=== PATIENT | female | born 1955 | race Caucasian/White ===

== ENCOUNTER 2017-01-11 19:26 | Emergency (ER) | payer OTHER ==
[2017-01-11 19:37] VITALS: BP 136/76; PULSE 98; TEMP 97; BMI 24.2
[2017-01-11] MEDS ORDERED: DIPHTH,PERTUSS(ACELL),TET 0.5 ML DISP.SYRIN IM ONE (19:52)
--- NOTE | 2017-01-11 19:56 | PDOC ---
History of Present Illness - General Chief Complaint: Injury Stated Complaint: INJURY Time Seen by Provider: 01/11/17 19:41 - History of Present Illness Initial Comments: 01/11/17 19:52 CHIEF COMPLAINT: pain to finger HISTORY OF PRESENT ILLNESS: 61 yo F presents to ED s/p trauma to 3rd and 4th fingers on left hand. Patient reports that she got her "fingers caught in a garage door." Patient reports pain but states she is "able to handle it." Patient states she is unable to move her third finger and that it "has a cut" No recent travel or sick contacts. PAST MEDICAL HISTORY: Denies past medical history FAMILY HISTORY: Denies SOCIAL HISTORY: Denies tobacco, alcohol, illicit drug use. SURGICAL HISTORY: Denies ALLERGIES: No known drug allergies REVIEW OF SYSTEMS General/Constitutional: Denies fever or chills. Denies weakness, weight change. HEENT: Denies change in vision. Denies ear pain or discharge. Denies sore throat. Cardiovascular: Denies chest pain or shortness of breath. Respiratory: Denies cough, wheezing, or hemoptysis. Gastrointestinal: Denies nausea, vomiting, diarrhea or constipation. Denies rectal bleeding. Genitourinary: Denies dysuria, frequency, or change in urination. Musculoskeletal: Pain to R 3rd and 4th finger. Denies joint or muscle swelling or pain. Denies neck or back pain. Skin and breasts: Cut to R 3rd finger. Denies rash or easy bruising. PHYSICAL EXAM General Appearance: Well-appearing, appropriately dressed. No apparent distress , no intoxication. HEENT: EOMI, PERRLA, normal ENT inspection, normal voice, TMs normal, pharynx normal. No conjunctival pallor. No photophobia, scleral icterus. Neck: Supple. Trachea midline. No tenderness, rigidity, carotid bruit, stridor , lymphadenopathy, or thyromegaly. Respiratory/Chest: Lungs CTAB. No shortness of breath, chest tenderness, respiratory distress, accessory muscle use. No crackles, rales, rhonchi, stridor , wheezing, dullness Cardiovascular: RRR. S1, S2. No JVD, murmur, bradycardia, tachycardia. Vascular Pulses: Dorsalis-Pedis (R): 2+, Dorsalis-Pedis (L): 2+ Gastrointestinal/Abdominal: Normal bowel sounds. Abdomen soft, non-distended. No tenderness or rebound tenderness. No organomegaly, pulsatile mass, guarding , hernia, hepatomegaly, splenomegaly. Lymphatic: No adenopathy, tenderness. Musculoskeletal/Extremities: Limited ROM to R 3rd finger, superficial lac to dorsal and volar aspect of finger at DIP. Normal inspection. FROM of all extremities, normal capillary refill. Pelvis Stable. No CVA tenderness. No tenderness to extremities, pedal edema, swelling, erythema or deformity. Integumentary: Appropriate color, dry, warm. No cyanosis, erythema, jaundice or rash Neurologic: editorial specialist II-XII intact. Fully oriented, alert. Appropriate mood/affect. Motor strength 5/5. No appreciable EOM palsy, facial droop or sensory deficit. Past History - Past Medical History Allergies/Adverse Reactions: Allergies Allergy/AdvReac Type Severity Reaction Status Date / Time No Known Allergies Allergy Verified 01/11/17 19:34 Home Medications: Ambulatory Orders No Home Medications 0 dose .ROUTE UTDICT 02/24/13 Ibuprofen 600 mg PO TID #21 tablet 01/11/17 Other medical history: denies - Immunization History Immunization Up to Date: No - Psycho/Social/Smoking Cessation Hx Anxiety: No Suicidal Ideation: No Smoking Status: No Smoking History: Never smoked Number of Cigarettes Smoked Daily: 0 *Physical Exam - Vital Signs Last Vital Signs Temp Pulse Resp BP Pulse Ox 97 F L 98 H 18 136/76 98 01/11/17 19:30 01/11/17 19:30 01/11/17 19:30 01/11/17 19:30 01/11/17 19:30 Procedures - Consent Consent obtained: Verbal - Laceration/Wound Repair Right Volar Finger 3rd digit Wound Length: to 2.5 cm Wound Explored: clean Wound's Depth, Shape: superficial Irrigated w/ Saline: Yes Betadine Prep: Yes Anesthesia: 1% Lidocaine Amount of Anesthetic (ccs): 2 Wound Repaired With: Sutures Suture Size/Type: 5:0 Number of Sutures: 2 Sterile Dressing Applied: Yes (xeroform, dry gauze) Splint Applied: Yes Type of Splint Applied: finger splint ED Treatment Course - RADIOLOGY Radiology Studies Ordered: Category Date Time Status FINGER(S) LEFT [RAD] Stat Radiology 01/11/17 19:50 Ordered Medical Decision Making - Medical Decision Making 06/25/17 19:56 61 yo F presents to ED s/p trauma to 3rd and 4th fingers on left hand. Patient states she does not need pain medicine at this time. She does not remember last Tdap. -Finger x-ray -Tdap lac repair (see procedure note) Advised patient of post lac repair instructions and to return in 10-14 days for suture removal. Advised patient of signs and symptoms for return to eR; patient verbalized understanding and agrees to plan. *DC/Admit/Observation/Transfer Diagnosis at time of Disposition: Finger laceration - Discharge Dispostion Disposition: HOME Condition at time of disposition: Good Admit: No - Prescriptions Prescriptions: Ibuprofen 600 mg PO TID #21 tablet - Referrals Referrals: Juan R Carey MD [Staff Physician] - - Patient Instructions Printed Discharge Instructions: DI for Laceration Repair Additional Instructions: Keep finger clean and dry for the next 24 hours. Please follow up with Dr. Carey as discussed. Follow up in 10-14 days for suture removal. If you experience any loss of sensation to your finger, fever, nausea, vomiting, diarrhea, or redness, streaking, swelling, or warmth to your finger, please return to the ER.
[2017-01-11] MEDS ORDERED: IBUPROFEN 600 MG TABLET (FP) PO ONE ×2 (20:20→20:23)
== END 2017-01-11 21:16 | disposition home or self-care (01) ==
LOC: JERFT 19:26 → JER 19:26 → JERFT 21:16
PROC: 3E0234Z Introduction of Serum, Toxoid and Vaccine into Muscle, Percutaneous Approach (ICD-10-PCS; principal; 2017-01-11)
PROC: 0HQFXZZ Repair Right Hand Skin, External Approach (ICD-10-PCS; 2017-01-11)
DX: S61.212A Laceration without foreign body of right middle finger without damage to nail, initial encounter (principal); W23.0XXA Caught, crushed, jammed, or pinched between moving objects, initial encounter; Y93.89 Activity, other specified; Y92.89 Other specified places as the place of occurrence of the external cause
CPT/HCPCS: 73140-TC-LT; 90715; 99281-25

== ENCOUNTER 2017-09-08 23:38 | Emergency (ER) | payer OTHER ==
[2017-09-08 23:52] VITALS: BP 167/98; PULSE 73; TEMP 97.8; BMI 23.7
--- NOTE | 2017-09-09 16:28 | EKG ---
Test Reason : Blood Pressure : / mmHG Vent. Rate : 083 BPM Atrial Rate : 083 BPM P-R Int : 144 ms QRS Dur : 094 ms QT Int : 364 ms P-R-T Axes : 038 001 026 degrees QTc Int : 427 ms NORMAL SINUS RHYTHM NORMAL ECG WHEN COMPARED WITH ECG OF 07-MAR-2011 13:00, FUSION COMPLEXES ARE NO LONGER PRESENT Confirmed by VITA MACIAS MD ([id number]) on 09/09/2017 4:28:17 PM Referred By: Confirmed By:VITA MACIAS MD
== END 2017-09-09 01:56 | disposition left against medical advice (07) ==
LOC: JER 23:38
DX: Z53.21 Procedure and treatment not carried out due to patient leaving prior to being seen by health care provider (principal)
CPT/HCPCS: 93005; 93010; 99281-25

== ENCOUNTER 2018-04-26 05:09 | Day surgery (SDC) | payer OTHER ==
[2018-04-22 14:42] VITALS: BMI 24.4
--- NOTE | 2018-04-26 15:02 | HP ---
History & Physical Update - Physical Physical: No Change - Assessment Assessment: No Change - Plan Plan: No Change
[2018-04-26] MEDS ORDERED: PROPOFOL 20 ML ONE ×3 (15:12)
[2018-04-26] MEDS ORDERED: SUCCINYLCHOLINE CHLORIDE 200 MG/10 ML VIAL ONE (15:17)
[2018-04-26] MEDS ORDERED: KETOROLAC TROMETHAMINE 30 MG/1 ML VIAL ONE (15:40)
[2018-04-26] MEDS ORDERED: DEXAMETHASONE SOD PHOSPHATE 4 MG/1 ML VIAL ONE (15:40)
[2018-04-26] MEDS ORDERED: IBUPROFEN 600 MG TABLET (FP) PO PRN (16:11)
[2018-04-26] MEDS ORDERED: IBUPROFEN 800 MG/8 ML IJ IVPB PRN (16:11)
[2018-04-26] MEDS ORDERED: ONDANSETRON 4 MG/2 ML VIAL IVPUSH PRN ×2 (16:11→16:20)
[2018-04-26] MEDS ORDERED: oxyCODONE HCL 5 MG TABLET PO PRN ×2 (16:11→16:20)
[2018-04-26] MEDS ORDERED: ELECTROLYTE-148 SOLN 1,000 ML IV SCH (16:15)
[2018-04-26] MEDS ORDERED: ACETAMINOPHEN 1000 MG/100 ML VIAL (NON FORMULARY) IVPB ONE (16:30)
[2018-04-26] MEDS ORDERED: LACTATED RINGERS SOLUTION 1,000 ML IV SCH (16:30)
[2018-04-26] MEDS ORDERED: ACETAMINOPHEN INJECTION 100 ML IVPB ONE (16:38)
[2018-04-26 17:05] VITALS: TEMP 98.2
[2018-04-26 17:37] VITALS: BP 132/76; PULSE 72
--- NOTE | 2018-04-27 09:46 | OP ---
DATE OF OPERATION: 04/26/2018 PREOPERATIVE DIAGNOSIS: Atypical glandular cell of undetermined significance, abnormal endometrium, endometrial polyp, and submucous fibroid. PROCEDURE: Hysteroscopy, dilatation and curettage, resection of endometrial polyp and submucous myoma. SURGEON: Rajeev Mercedes MD ANESTHESIA: General. ESTIMATED BLOOD LOSS: 50 mL. DESCRIPTION OF PROCEDURE: The patient was taken to the operating room, had adequate general anesthesia, in dorsal lithotomy position. Examination under anesthesia revealed external genitalia to be normal. Vagina was normal. Cervix was clean. No gross lesion. Uterus was slightly prominent. Adnexa, no masses were palpable. Then, with a weighted speculum in the vagina, anterior lip of the cervix was grasped with a single-tooth tenaculum. Endocervical curetting was done first. Then, uterine cavity was sounded to 9 cm. Cervix was slightly dilated with Hegar dilator. Then, hysteroscope was introduced. Visualization of the endocervical canal appeared to be normal. There was an endometrial polyp at the lower uterine segment extending to the endocervical area. There was also a small submucous myoma at the fundal area of the uterus. Endometrium appeared to be prominent and irregular. At this time, Symphion Resectoscope was introduced, and first the endometrial polyp in the lower uterine segment was resected in its entirety, and then, submucous myoma also was resected with the Symphion Resectoscope in its entirety. There was slight amount of bleeding at the site, which was , and bleeding was stopped. Then, endometrium was curetted in litigation partner fashion. Patient tolerated the procedure well, left the OR in good condition. The fluid deficit was 0. Taj [id number]
--- NOTE | 2018-04-30 14:26 | PATH ---
Surgical Pathology Report Patient Name: MILO MIDDLETON [facility]. Rec. #: [id number] /Age/Gender: 1955 (Age: 62) / F Account: [id number] Location: [facility] SURGICAL Taken: 04/26/2018 Received: 04/27/2018 Reported: 04/29/2018 Physicians: Rajeev Mercedes M.D. Specimen(s) Received A: ENDOCERVICAL CURETTINGS B: ENDOMETRIAL CURETTINGS C: ENDOMETRIUM POLYP AND CURETTINGS Clinical History Atypical granular cell on cervical Pap smear Final Diagnosis A. ENDOCERVICAL CURETTINGS: FRAGMENTS OF ENDOCERVICAL TISSUE WITH SQUAMOUS METAPLASIA. SCANTY SUPERFICIAL ENDOMETRIAL TISSUE SHOWING FOCAL STROMAL BREAKDOWN AND EOSINOPHILIC PAPILLARY CHANGE. B. ENDOMETRIAL CURETTINGS: COMPLEX ENDOMETRIAL HYPERPLASIA WITH ATYPIA. C. ENDOMETRIAL POLYP AND CURETTINGS: COMPLEX ENDOMETRIAL HYPERPLASIA WITH ATYPIA. SEPARATE ENDOMETRIAL POLYPS. COMMENT: CARCINOMAS CANNOT BE EXCLUDED. This case was discussed with Dr. Mercedes on April 29, 2018. Electronically Signed Josafat Palencia M.D. Gross Description A. Received in formalin labeled "endocervical curetting," is a 2.0 x 1.9 x 0.3 cm aggregate of red-brown soft tissue fragments admixed with blood-tinged mucous. The formalin is filtered and the specimen is entirely submitted in one cassette. B. Received in formalin labeled "endometrial curetting," is a 2.5 x 2.5 x 0.3 cm aggregate of red-brown soft tissue fragments. The formalin is filtered and the specimen is entirely submitted in one cassette. C. Received in formalin labeled "polyp and endometrial curettings," is a 2.4 x 2.0 x 0.3 cm aggregate of king soft tissue fragments. The formalin is filtered and the specimen is entirely submitted in one cassette. DL04/27/2018 saudi04/27/2018
== END 2018-04-26 17:39 | disposition home or self-care (01) ==
LOC: JASU-SURG 05:09
PROVIDERS: ATTEND Obstetrics & Gynecology
PROC: 0UDB7ZX Extraction of Endometrium, Via Natural or Artificial Opening, Diagnostic (ICD-10-PCS; 2018-04-26)
PROC: 0UJD8ZZ Inspection of Uterus and Cervix, Via Natural or Artificial Opening Endoscopic (ICD-10-PCS; 2018-04-26)
PROC: 0UB98ZZ Excision of Uterus, Via Natural or Artificial Opening Endoscopic (ICD-10-PCS; principal; 2018-04-26 15:00)
PROC: 0UB97ZX Excision of Uterus, Via Natural or Artificial Opening, Diagnostic (ICD-10-PCS; 2018-04-26 15:00)
DX: D25.0 Submucous leiomyoma of uterus (principal); N84.0 Polyp of corpus uteri
CPT/HCPCS: 88305-TC; 94760; J0131

== ENCOUNTER 2018-07-06 08:33 | Inpatient (IN) | payer OTHER ==
[2018-07-05 13:42] VITALS: BMI 23.7
[2018-07-06] MEDS ORDERED: ROPIVACAINE HCL 0.5% 30ML VIAL ONE (12:26)
[2018-07-06] MEDS ORDERED: DEXAMETHASONE SOD PHOSPHATE/PF 10 MG/ML SDV ONE (12:26)
[2018-07-06] MEDS ORDERED: MIDAZOLAM HCL 2 MG/2 ML SINGLE DOSE VIAL ONE ×4 (12:31→13:40)
[2018-07-06] MEDS ORDERED: DESFLURANE GAS 240 ML BOTTLE IH ONE (13:38)
--- NOTE | 2018-07-06 13:43 | HP ---
Past Medical History - Primary Care Physician PCP:: Rajeev Mercedes - Admission Chief Complaint: Endometrial hyperplasia with atypia History of Present Illness: 62 yo f with hx of galndular atypia on pap sono thicken EM , s/p hysteroscopy D& C , pta report endometrial hyperplasia with atypia , admitted for CHANTEL, BSO, risks and benfit to surgery has discussed with patient History Source: Patient Limitations to Obtaining History: No Limitations - Past Surgical History Hx Myomectomy: No Hx Transabdominal Cerclage: No - Smoking History Smoking history: Never smoked Have you smoked in the past 12 months: No Aproximately how many cigarettes per day: 0 - Alcohol/Substance Use Hx Alcohol Use: No - Social History Usual Living Arrangement: Yes: With Spouse History of Recent Travel: No Home Medications - Allergies Allergies/Adverse Reactions: Allergies Allergy/AdvReac Type Severity Reaction Status Date / Time No Known Allergies Allergy Verified 04/26/18 13:36 - Home Medications Home Medications: Ambulatory Orders NK [No Known Home Medication] 07/05/18 Review of Systems - Review of Systems Constitutional: reports: No Symptoms Eyes: reports: No Symptoms HENT: reports: No Symptoms Neck: reports: No Symptoms Cardiovascular: reports: No Symptoms Respiratory: reports: No Symptoms Gastrointestinal: reports: No Symptoms Genitourinary: reports: No Symptoms Breasts: reports: No Symptoms Reported Musculoskeletal: reports: No Symptoms Integumentary: reports: No Symptoms Neurological: reports: No Symptoms Endocrine: reports: No Symptoms Hematology/Lymphatic: reports: No Symptoms Psychiatric: reports: No Symptoms Physical Exam-ENTRY LEVEL ELECTRICAL ENGINEER Vital Signs: Vital Signs Temperature 97.9 F 07/06/18 09:29 Pulse Rate 80 07/06/18 09:29 Respiratory Rate 16 07/06/18 09:29 Blood Pressure 145/90 07/06/18 09:29 O2 Sat by Pulse Oximetry (%) 98 07/06/18 09:28 Constitutional: Yes: Well Nourished, No Distress, Calm Eyes: Yes: WNL, Conjunctiva Clear, EOM Intact HENT: Yes: WNL, Atraumatic, Normocephalic Neck: Yes: WNL, Supple, Trachea Midline Cardiovascular: Yes: WNL, Regular Rate and Rhythm Respiratory: Yes: WNL, Regular, CTA Bilaterally Gastrointestinal: Yes: WNL ...Rectal Exam: Yes: WNL Renal/: Yes: WNL External Genitalia: Yes: Normal Vaginal Exam: Yes: Normal Cervix: Yes: Normal Uterus: Yes: Normal Adnexa: Not Palpable: Left, Right Breast(s): Yes: WNL Musculoskeletal: Yes: WNL Extremities: Yes: WNL Edema: No Integumentary: Yes: WNL Neurological: Yes: WNL, Alert, Oriented ...Motor Strength: WNL Psychiatric: Yes: WNL, Alert, Oriented Problem List - Problem (1) Endometrial hyperplasia with atypia Code(s): N85.02 - ENDOMETRIAL INTRAEPITHELIAL NEOPLASIA [EIN] Assessment/Plan chantel, bso, possible pelvic lymph node sampling, omentectomy
[2018-07-06] MEDS ORDERED: PROPOFOL 20 ML ONE (14:24)
[2018-07-06] MEDS ORDERED: ROCURONIUM BROMIDE 50 MG/5 ML VIAL ONE ×2 (14:24→15:50)
[2018-07-06] MEDS ORDERED: ceFAZolin SODIUM 1 GM VIAL IVPB ONE ×2 (14:29)
[2018-07-06] MEDS ORDERED: ACETAMINOPHEN INJECTION 100 ML IVPB ONE (14:56)
[2018-07-06] MEDS ORDERED: NEOSTIGMINE METHYLSULFATE 0.5 MG/ML - 10 ML MDV ONE (16:04)
[2018-07-06] MEDS ORDERED: IBUPROFEN 600 MG TABLET (FP) PO PRN (16:34)
[2018-07-06] MEDS ORDERED: ONDANSETRON 4 MG/2 ML VIAL IVPUSH PRN ×3 (16:34→17:04)
[2018-07-06] MEDS ORDERED: IBUPROFEN 800 MG/8 ML IJ IVPB PRN (16:34)
[2018-07-06] MEDS ORDERED: oxyCODONE HCL 5 MG TABLET PO PRN (16:34)
[2018-07-06] MEDS ORDERED: GLYCOPYRROLATE 0.2 MG/1 ML VIAL ONE ×2 (16:40→16:42)
[2018-07-06] MEDS ORDERED: DEXAMETHASONE SOD PHOSPHATE 4 MG/1 ML VIAL ONE (16:42)
[2018-07-06] MEDS ORDERED: ELECTROLYTE-148 SOLN 1,000 ML IV SCH (16:45)
[2018-07-06] MEDS ORDERED: HYDROmorphone *PCA* 10MG/50ML DISP.SYRIN PCA ONE ×2 (17:02→17:05)
[2018-07-06] MEDS ORDERED: IBUPROFEN 800 MG/8 ML IJ IVPB ONE ×2 (17:17→17:30)
[2018-07-06] MEDS ORDERED: HYDROmorphone *PCA* 10MG/50ML DISP.SYRIN PCA SCH (17:45)
[2018-07-06] MEDS ORDERED: CEFAZOLIN 1 GM/D5W 1 GM/50 ML BAG IVPB SCH (18:00)
[2018-07-06] MEDS: CEFAZOLIN 1 GM/D5W 1 GM/50 ML BAG IVPB SCH (21:40)
[2018-07-06] MEDS: LACTATED RINGERS SOLUTION 1,000 ML IV SCH (21:40)
[2018-07-07] MEDS: CEFAZOLIN 1 GM/D5W 1 GM/50 ML BAG IVPB SCH ×2 (05:38→15:04)
[2018-07-07 06:52] LABS: HEMATOCRIT 40.6 % (32.4-45.2); HEMOGLOBIN 13.4 GM/dL (10.7-15.3); MCH 28.9 pg (25.7-33.7); MCHC 32.9 g/dl (32.0-36.0); MEAN CELL VOLUME 87.7 fl (80-96); MEAN PLT VOLUME 8.4 fl (7.5-11.1); PLATELET COUNT 258 K/MM3 (134-434); RBC 4.63 M/mm3 (3.60-5.2); RDW 12.8 % (11.6-15.6)
[2018-07-07] MEDS: LACTATED RINGERS SOLUTION 1,000 ML IV SCH (07:14)
--- NOTE | 2018-07-07 07:25 | OP ---
DATE OF OPERATION: 07/06/2018 PREOPERATIVE DIAGNOSIS: Atypical endometrial hyperplasia with atypia, rule out endometrial cancer. POSTOPERATIVE DIAGNOSIS: Atypical endometrial hyperplasia with atypia, rule out endometrial cancer. PROCEDURE: Total abdominal hysterectomy, bilateral salpingo-oophorecetomy, and pelvic washing. SURGEON: Rajeev Mercedes MD MANAGER FITNESS: Evan Mckeon MD ANESTHESIA: General. ANESTHESIOLOGIST: Elizabeth Farley MD ESTIMATED BLOOD LOSS: 250 mL. DESCRIPTION OF PROCEDURE: The patient was taken to the operating room, and under adequate general anesthesia in dorsal supine position , abdomen and perineum were prepped and draped. A Pfannenstiel abdominal skin incision was made. Abdominal wall was cut layer by layer, until peritoneum was exposed and incised. Upon entering the abdominal cavity, upper abdomen was checked, was normal. Bowels were packed away. Pelvic washing was done. Uterus appeared to be normal. Both ovaries and tubes were normal. Bladder was adherent to the anterior lower uterine segment. Cul-se-sac was free of adhesions. Then, both cornua region of the uterus were grasped with 2 curved Genaro, and both round ligaments were identified bilaterally, clamped with the bipolar LigaSure cautery, cauterized and cut. Then, the anterior leaf of broad ligament was opened. Bladder was dissected from the lower uterine segment, and bladder was pushed down. Then, a hole was made into the broad ligament, and infundibulopelvic ligament was grasped with a Sukhwinder clamp and cut, and the clamp replaced with bilateral 2-0 Vicryl tags. This done, bladder was further pushed down. Uterine arteries were identified bilaterally, clamped with Sukhwinder clamp and cut, and the clamp replaced with 0 Vicryl suture bilaterally. Bladder was further pushed down. Then, paracervical area was grasped with a Sukhwinder clamp and cut, and the clamp replaced with 0 Vicryl suture bilaterally until cervicovaginal junction was reached. At this time, vaginal anchor was grasped with Sukhwinder clamps, cut, and the clamp with 0 Vicryl suture bilaterally. The suture was held with a hemostat. Then, specimen was removed below the cervix. Then, vaginal cuff was closed with interrupted suture of 3-0 Vicryl. There was a small amount of oozing from the uterosacral ligament on the right side, which was grasped with a right-angle clamp and tied. Hemostasis was established. Pelvic cavity several times irrigated. No active bleeding was seen. Both ureters were manually checked, appeared to be normal. Urine was clear. All the lap pad, sponge, and instrument counts were correct. Then, peritoneum was closed with 0 Vicryl continuous suture. Muscles were brought together with interrupted suture of 0 Vicryl. Fascia was closed with 0 Vicryl continuous sutures, subcutaneous fat with interrupted suture of 0 Vicryl, and the skin was closed with 4-0 Biosyn subcuticular continuous suture. Patient tolerated the procedure well, left the OR in good condition. Frozen section of the specimen showed at the time of the procedure focal endometrial hyperplasia with atypia. No evidence of invasion. Patient tolerated the procedure well, left the OR in good condition. Taj [id number]
[2018-07-07 07:34] LABS: ANION GAP 10 MMOL/L (8-16); BLOOD UREA NITROGEN 11 mg/dL (7-18); CALCIUM 7.7 mg/dL (8.5-10.1); CHLORIDE 100 mmol/L (98-107); CO2 24 mmol/L (21-32); CREATININE 0.5 mg/dL (0.55-1.3); GLUCOSE,RANDOM 130 mg/dL (74-106); SODIUM 134 mmol/L (136-145)
--- NOTE | 2018-07-07 08:21 | PN ---
Progress Note (short form) - Note Progress Note: Anesthesia Pain Pt seen and exmained S:Alert and awake comfortable O: Vital Signs Temperature 98.9 F 07/07/18 06:00 Pulse Rate 97 H 07/07/18 06:00 Respiratory Rate 07/07/18 06:00 Blood Pressure 140/72 07/07/18 06:00 O2 Sat by Pulse Oximetry (%) 93 L 07/06/18 18:48 CBC, BMP 07/07/18 06:30 07/07/18 06:30 A/P: Current Active Problems Endometrial hyperplasia with atypia (Acute) s/p CHANTEL Uses FINANCIAL SALES ASSISTANT Continue current care Johnny Bernstein MD
[2018-07-07] MEDS: ENOXAPARIN NA (PORCINE) 40 MG/0.4 ML DISP.SYRIN SQ SCH (09:01)
[2018-07-07] MEDS ORDERED: oxyCODONE HCL 5 MG TABLET PO PRN (10:05)
[2018-07-07] MEDS ORDERED: SIMETHICONE 80 MG TAB.CHEW (FP) PO PRN (10:06)
[2018-07-07] MEDS ORDERED: ACETAMINOPHEN 325 MG TABLET (FP) PO PRN (10:06)
[2018-07-07] MEDS ORDERED: SENNOSIDES/DOCUSATE COMBO (SENNA PLUS) TABLET (UD) PO PRN (10:07)
--- NOTE | 2018-07-07 10:13 | PN ---
Progress Note (short form) - Note Progress Note: POD 1 S/P monserrat, bso , HAS MILD INCISIONAL PAIN, NO VAGINAL BLEEDING, URINE CLEAR CBC, BMP 07/07/18 06:30 07/07/18 06:30 Last Vital Signs Temp Pulse Resp BP Pulse Ox 98.9 F 97 H 18 140/72 93 L 07/07/18 06:00 07/07/18 06:00 07/07/18 06:00 07/07/18 06:00 07/06/18 18:48 ABDOMEN SOFT, NO DISTENSION, NO CAV INCISION DRY, CLEAN NO CALF TENDERNESS PLAN AMBULATE, ADVANCE DIET PAIN MANAGEMENT Problem List - Problems (1) Endometrial hyperplasia with atypia Code(s): N85.02 - ENDOMETRIAL INTRAEPITHELIAL NEOPLASIA [EIN]
--- NOTE | 2018-07-08 09:20 | PN ---
Progress Note (short form) - Note Progress Note: ANESTHESIOLOGY POST-OP CHECK 62F s/p CHANTEL under general anesthesia, POD #1. No acute complaints. Pain 4/10 and tolerable. Denies N/V. 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 Vital Signs Temperature 99.4 F 07/08/18 05:30 Pulse Rate 98 H 07/08/18 05:30 Respiratory Rate 16 07/08/18 05:30 Blood Pressure 161/77 07/08/18 05:30 O2 Sat by Pulse Oximetry (%) 93 L 07/06/18 18:48 Active Medications Acetaminophen (Tylenol -) 650 mg PO Q4H PRN PRN Reason: PAIN LEVEL 4 - 6 Diphenhydramine HCl (Benadryl Injection -) 12.5 mg IVPUSH ONCE PRN PRN Reason: FOR ITCHING Stop: 07/09/18 03:00 Enoxaparin Sodium (Lovenox -) 40 mg SQ DAILY [facility] Last Admin: 07/07/18 09:01 Dose: 40 mg Parenteral Electrolytes (Plasma-Lyte 148 -) 1,000 mls @ 125 mls/hr [facility] Last Admin: 07/07/18 17:03 Dose: Not Given Lactated Ringer's (Lactated Ringers Solution) 1,000 mls @ 125 mls/hr IV ASDIR [facility] Last Admin: 07/07/18 07:14 Dose: 125 mls/hr Ibuprofen (Motrin -) 600 mg PO Q6H PRN PRN Reason: FEVER Ibuprofen (Caldolor Injection -) 800 mg IVPB Q6H PRN PRN Reason: Fever - If PO not effective. Ondansetron HCl (Zofran Injection) 4 mg IVPUSH Q6H PRN PRN Reason: NAUSEA Last Admin: 07/07/18 08:57 Dose: 4 mg Oxycodone HCl (Roxicodone -) 5 mg PO Q4H PRN PRN Reason: PAIN LEVEL 1-5 Last Admin: 07/06/18 20:39 Dose: 5 mg Oxycodone HCl (Roxicodone -) 10 mg PO Q6H PRN PRN Reason: PAIN LEVEL 6-10 Last Admin: 07/07/18 15:07 Dose: 10 mg Senna/Docusate Sodium (Pericolace -) 2 tablet PO HS PRN PRN Reason: CONSTIPATION Simethicone (Mylicon -) 80 mg PO Q4H PRN PRN Reason: GAS Gen: Awake, alert, NAD No apparent anesthesia complications. -CONSUMER RELATIONS COMPLAINT CLERK d/c'd yesterday. Pain controlled. -continue antiemetics PRN -encourage ambulation -Continue management as per primary team.
[2018-07-08] MEDS: ENOXAPARIN NA (PORCINE) 40 MG/0.4 ML DISP.SYRIN SQ SCH (09:55)
[2018-07-08 11:10] VITALS: BP 139/90; PULSE 105; TEMP 98.5
[2018-07-08] MEDS ORDERED: PT OWN MED DRAWER 7, Y5N ONE (11:37)
--- NOTE | 2018-07-11 10:20 | PATH ---
Cytology Non-Gynecological Report Patient Name: MILO MIDDLETON [facility]. Rec. #: [id number] /Age/Gender: 1955 (Age: 62) / F Account: [id number] Location: [address] [place] [address] Taken: 07/06/2018 Received: 07/06/2018 Reported: 07/11/2018 Physicians: Rajeev Mercedes M.D. Specimen(s) Received PELVIC WASHINGS Clinical History Endometrioid adenocarcinoma Final Diagnosis PELVIC WASHINGS: SATISFACTORY FOR EVALUATION ATYPICAL CELLS PRESENT. Comment: Sheets of columnar cells admixed with mesothelial cells and macrophages present. These columnar cells are positive for MOC31 and Fer-EP4. Although suspicious for adenocarcinoma, the cellular atypia is insufficient to make a definitive diagnosis. Recommend correlation with clinical findings. Also see concurrent surgical pathology report [id number]. Immunohistochemical stained slides CD68 and Calretinin highlight macrophages and mesothelial cells, respectively. Immunohistochemistry stains CD68, Calretinin, MOC31, and Fer-EP4 performed at [place], [place] ([id number]) interpreted at [facility]. Positive and negative controls (internal if applicable) show appropriate results. Electronically Signed Josafat Palencia M.D. Gross Description Approximately 50cc of bloody fluid received fixed in 50% alcohol. One slide and one cellblock prepared.
--- NOTE | 2018-07-15 17:57 | DS ---
Physical Exam-CLINICAL ANALYST Vital Signs: Vital Signs Temperature 98.5 F 07/08/18 10:00 Pulse Rate 105 H 07/08/18 10:00 Respiratory Rate 20 07/08/18 10:00 Blood Pressure 139/90 07/08/18 10:00 O2 Sat by Pulse Oximetry (%) 93 L 07/06/18 18:48 Constitutional: Yes: Well Nourished, No Distress, Calm Eyes: Yes: WNL, Conjunctiva Clear, EOM Intact HENT: Yes: WNL, Atraumatic, Normocephalic Neck: Yes: WNL, Supple, Trachea Midline Cardiovascular: Yes: WNL, Regular Rate and Rhythm Respiratory: Yes: WNL, Regular, CTA Bilaterally Gastrointestinal: Yes: WNL ...Rectal Exam: Yes: WNL Renal/: Yes: WNL External Genitalia: Yes: Normal Breast(s): Yes: WNL Musculoskeletal: Yes: WNL Extremities: Yes: WNL Integumentary: Yes: WNL Wound/Incision: Yes: Clean/Dry, Well Approximated, Sutures Intact Neurological: Yes: WNL, Alert, Oriented ...Motor Strength: WNL Psychiatric: Yes: WNL, Alert, Oriented Labs: CBC, BMP 07/07/18 06:30 07/07/18 06:30 Discharge Summary Reason For Visit: ENDOMETRIAL INTRAEPITHELIAL NEOPLASIA [EIN] Procedures: Principal: JULIA GOLDEN Hospital Course: no complication Condition: Good - Instructions Diet, Activity, Other Instructions: regular diet, no intercourse, follow up office 2 weeks, if fever, pain, heavy vaginal bleeding call md Referrals: Rajeev Mercedes MD [Staff Physician] - Disposition: HOME - Home Medications Comprehensive Discharge Medication List: Ambulatory Orders Ibuprofen [Motrin -] 600 mg PO QID #28 tablet 07/07/18
--- NOTE | 2018-07-19 16:05 | PATH ---
Surgical Pathology Report Patient Name: MILO MIDDLETON [facility]. Rec. #: [id number] /Age/Gender: 1955 (Age: 62) / F Account: [id number] Location: [address] [place] [address] Taken: 07/06/2018 Received: 07/06/2018 Reported: 07/19/2018 Physicians: Rajeev Mercedes M.D. Specimen(s) Received UTERUS, CERVIX, BILATERAL OVARIES, BILATERAL FALLOPIAN TUBES Clinical History Endometrial intraepithelial neoplasm Intraoperative Consult Diagnosis Uterus, cervix, bilateral ovaries, bilateral fallopian tubes, frozen section: Endometrium with cystic changes and focal atypia on telemarketing representative sections. 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 ENDOMETRIAL ENDOMETRIOID ADENOCARCINOMA, FIGO GRADE 1 OF 3, WITH VILLOGLANDULAR AND SQUAMOUS FEATURES, MEASURING 3 MM; IN A BACKGROUND OF COMPLEX ATYPICAL HYPERPLASIA (CAH). NO MYOMETRIAL INVASION IDENTIFIED. 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 CERVIX WITH SQUAMOUS METAPLASIA AND MICROGRANULAR HYPERPLASIA. NO PERINEURAL OR LYMPHOVASCULAR INVASION IDENTIFIED. NO LOWER UTERINE SEGMENT, SEROSA, CERVICAL STROMA, OR PARAMETRIAL INVOLVEMENT IDENTIFIED. RIGHT FALLOPIAN TUBE WITH HIGH GRADE SEROUS CARCINOMA INVOLVING FIMBIATED END AND SEROSAL SURFACE; 5 MM IN GREASTEST MICROSCOPIC DIMENSION. 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 LEFT OVARY WITH ADULT GRANULOSA CELL TUMOR, 9 MM IN GREASTEST MICROSCOPIC DIMENSION. NO SURFACE INVOLVEMENT IDENTIFIED. RIGHT OVARY AND LEFT PARAMETRIUM WITH ENDOSALPINGOSIS. BLOOD VESSELS WITH FOCAL DYSTROPHIC CALCIFICATION WITHIN WALL. AJCC PATHOLOGIC STAGE (2018): ENDOMETRIUM: pT1a pNx. FALLOPIAN TUBE: pT1c2 pNx. OVARY: pT1 pNx. Comment: This case is challenging with three synchronous malignancies from the endometrium, right fallopian tube, and left ovary. The endometrioid carcinoma (FIGO I) is confined to the endometrium, without myometrial invasion and show villoglandular and squamous features. Immunohistochemical stains performed in this material and previous biopsy ([id number]), show the tumor is positive for ER, p16 (patchy, strong); while negative for WT-1. P53 shows wild type staining. In the right fallopian tube, the high grade serous carcinoma shows involvement of the fimbriated end and serosal surface. Immunohistochemical stains show the tumor is positive for p16, WT-1, and p53 with mutant staining. Serous tubal intraepithelial carcinoma (STIC) and serous secretory cell outgrowth (RIG WELDER) are identified. Proliferative marker ki-67 and BCL2 utilized to evaluate this case Adult type granulosa cell tumor in the left ovary is positive for: AE1/3, S100, inhibin and calretinin; while negative for chromogranin and synaptophysin. Reticulin stain highlights the nests of tumor cells. An incidental benign adenomatoid tumor of the myometrium is highlighted by calretinin. Overall, the differing histomorphology of the three tumors, presence of endometrial CAH and STIC/RIG WELDER in the fallopian tubes, together with their respective immunophenotypes; support three synchronous primary malignancies. Concurrent pelvic washing is atypical ([id number]). Prior material from the endometrium ([id number]) reviewed. Findings discussed with Dr. Mercedes. Immunohistochemical stains performed: [facility]: ER, S100, chromogranin, synaptophysin, AE1/3 [facility] ([id number]): p53, WT-1, P16, inhibin, calretinin, BCL2, Ki-67 Comments Endometrial Carcinoma :Surgical Pathology Cancer Case Summary Based on AJCC 8th edition Procedure _X__ Total abdominal hysterectomy and bilateral salpingo-oophorectomy Tumor Size Greatest dimension: _0.3__ cm Histologic Type _X__ Endometrioid carcinoma, villoglandular and squamous features Histologic Grade _X__ FIGO grade 1 Myometrial Invasion _X__ Not identified Uterine Serosa Involvement _X__ Not identified Cervical Stromal Involvement _X__ Not identified Other Tissue/Organ Involvement _X__ Not identified Lymphovascular Invasion _X__ Not identified Regional Lymph Nodes _X_ No lymph nodes submitted or found Pathologic Stage Classification (pTNM, AJCC 8th Edition) Primary Tumor (pT) _X_ pT1a: Tumor limited to endometrium or invading less than half of the myometrium Category (pN) _X__ pNX: Regional lymph nodes cannot be assessed Ovary or Fallopian Tube or Primary Peritoneal: Surgical Pathology Cancer Case Summary Procedure _X__ Total abdominal hysterectomy and bilateral salpingo-oophorectomy Specimen Integrity Specimen Integrity of Right Ovary _X__ Capsule intact Specimen Integrity of Left Ovary _X__ Capsule intact Specimen Integrity of Right Fallopian Tube _X__ Serosal tumor involvement by high grade serous carcinoma Specimen Integrity of Left Fallopian Tube _X__ Serosa intact Tumor Site _X__ Right fallopian tube (High grade serous carcinoma) _X__ Left ovary (Granulosa cell Tumor, Adult type) Ovarian Surface Involvement _X__ Absent Fallopian Tube Surface Involvement _X__ Present Specify laterality (if applicable): Right Tumor Size Right Fallopian tube: High grade Serous carcinoma : Greatest dimension (centimeters): _0.5__ cm Left Ovary: Adult type Granulosa cell Tumor Greatest dimension (centimeters): _0.9__ cm Histologic Type _X__ Serous carcinoma, High grade: Right Fallopian Tube _X__ Granulosa cell tumor, adult type: Left Ovary _X__ Serous Intraepithelial Carcinoma (STIC): Right and Left Fallopian Tubes Implants _X__ Not sampled Other Tissue/ Organ Involvement _X__ Not identified Peritoneal/Ascitic Fluid _X__ Atypical and/or suspicious (explain): See [id number] Pleural Fluid _X__ Not submitted / unknown Treatment Effect _X__ No known presurgical therapy Regional Lymph Nodes _X__ No lymph nodes submitted or found Pathologic Stage Classification (pTNM, AJCC 8th Edition) Primary Tumor (pT) _X__ pT1: Tumor limited to ovaries (one or both) or fallopian tube(s): Left Ovary Granulosa cell _X__ pT1c2: Capsule ruptured before surgery or tumor on ovarian or fallopian tube surface (Right Fallopian tube Serous Carcinoma) Regional Lymph Nodes (pN) _X__ pNX: Regional lymph nodes cannot be assessed Additional Pathologic Findings _X__ Serous tubal intraepithelial carcinoma (STIC): right and left fallopian tubes _X__ Secretory cell outgrowth (RIG WELDER): right and left fallopian tubes _X__ Endosalpingiosis Electronically Signed Rosio Dale M.D. Gross Description Received fresh labeled "cervix, uterus, bilateral fallopian tubes, bilateral ovaries," is a 148 g hysterectomy specimen including a uterus, attached cervix and bilateral attached fallopian tubes and ovaries. The specimen measures 9.4 cm from superior to inferior, 5.5 cm from left to right and 5.0 cm from anterior to posterior. The serosa is pink-king and smooth. The attached cervix measures 3.5 cm in length and 2.9 cm in diameter. The ectocervix is pink-king, smooth and glistening. The endocervix is unremarkable. The endometrial cavity measures 3.8 cm in length and 2.8 cm from cornu to cornu. The endometrium is king red and focally measuring up to 0.3 cm in thickness on the posterior endometrium. The myometrium displays multiple intramural nodules, measuring up to 1.9 cm in greatest dimension. The cut surface of the nodules is king and rubbery with whorled architecture. No areas of hemorrhage or necrosis are identified. The remaining myometrium is king-pink and averages 2.5 cm in thickness. The left fimbriated fallopian tube measures 5.0 cm in length. The outer surface is pink-king and smooth. Sectioning reveals an unremarkable lumen. The left ovary measures 2.5 x 1.5 x 1.0 cm. The outer surface is king-red and unremarkable. Sectioning reveals king-red, unremarkable ovarian parenchyma. The right fimbriated fallopian tube measures 6.5 cm in length. The outer surface is pink-king and smooth with a 0.8 cm greatest dimension attached paratubal cyst. Sectioning of the fallopian tube reveals an unremarkable lumen. The right ovary measures 2.0 x 1.1 x 1.0 cm. The outer surface is king-red and smooth. Sectioning reveals unremarkable ovarian parenchyma. A telemarketing representative section of the posterior endomyometrium is submitted for frozen section. [employer]ant sections are submitted in 23 cassettes as follows: 1-frozen section residue; 2-anterior cervix; 3-anterior lower uterine segment; 4-posterior cervix; 5-posterior lower uterine segment; 4-9-mvbzbhnh endomyometrium sequentially submitted from superior to inferior; 33-53-znfpzemzz endomyometrium sequentially submitted from superior to inferior (thickened area in cassettes 10-13); 01-77-izevrgjkfg nodules; 18- left fallopian tube fimbria; 19-cross sections of left fallopian tube; 20-left ovary; 21-right fallopian tube fimbria with cystic lesion; 22-cross sections of right fallopian tube; 23-right ovary; 24-right parametrium; 25- left parametrium; 26-left proximal fallopian tube; 79-71-jlhqawplg right fallopian tube from proximal to distal; 01-30-tmdtfotfg of left ovary; 31-right proximal fallopian tube; 07-52-wyyomfwzq left fallopian tube from proximal to distal; 12-24-pjxmpvkfm right ovary. 07/06/2018 [facility]07/06/2018
== END 2018-07-08 15:50 | disposition home or self-care (01) | DRG 743 ==
LOC: JSAMEDAYSX 08:33 → J6S 18:25
PROVIDERS: ADMIT Obstetrics & Gynecology; ATTEND Obstetrics & Gynecology
PROC: 0UT70ZZ Resection of Bilateral Fallopian Tubes, Open Approach (ICD-10-PCS; 2018-07-06)
PROC: 3E1M38Z Irrigation of Peritoneal Cavity using Irrigating Substance, Percutaneous Approach (ICD-10-PCS; 2018-07-06)
PROC: 0UT90ZZ Resection of Uterus, Open Approach (ICD-10-PCS; principal; 2018-07-06 11:00)
DX: N85.02 Endometrial intraepithelial neoplasia [EIN] (principal)
CPT/HCPCS: 36415; 80048; 85027; 86850; 86900; 86901; 88108; 88305-TC; 88307-TC; 88331-TC; 88341-TC; 94760; J0131

== ENCOUNTER 2018-09-09 05:41 | Day surgery (SDC) | payer OTHER ==
[2018-09-08 15:13] VITALS: BMI 23.6
[2018-09-09 07:45] LABS: BASO % 0.2 % (0-2.0); HEMATOCRIT 44.7 % (32.4-45.2); HEMOGLOBIN 15.5 GM/dL (10.7-15.3); LYMPH % 10.5 % (8-40); MCH 30.6 pg (25.7-33.7); MCHC 34.8 g/dl (32.0-36.0); MEAN CELL VOLUME 87.9 fl (80-96); MEAN PLT VOLUME 8.5 fl (7.5-11.1); MONO % 1.2 % (3.8-10.2); NEUT % 88.1 % (42.8-82.8); PLATELET COUNT 258 K/MM3 (134-434); RBC 5.08 M/mm3 (3.60-5.2); RDW 12.6 % (11.6-15.6); WHITE BLOOD COUNT 4.5 K/mm3 (4.0-10.0)
[2018-09-09] MEDS ORDERED: SODIUM CHLORIDE 250 ML IV ONE ×3 (08:00→19:00)
[2018-09-09 08:10] LABS: ALK PHOS 119 U/L (45-117); ANION GAP 6 MMOL/L (8-16); BILIRUBIN,TOTAL 0.3 mg/dL (0.2-1); BLOOD UREA NITROGEN 16 mg/dL (7-18); CHLORIDE 108 mmol/L (98-107); CO2 27 mmol/L (21-32); CREATININE 0.7 mg/dL (0.55-1.3); GLUCOSE,RANDOM 162 mg/dL (74-106); MAGNESIUM 2.2 mg/dL (1.8-2.4); POTASSIUM 4.4 mmol/L (3.5-5.1); PREALBUMIN 28.6 mg/dl (20-40); SGOT/AST 16 U/L (15-37); SGPT/ALT 41 U/L (13-61); SODIUM 141 mmol/L (136-145)
[2018-09-09] MEDS ORDERED: FOSAPREPITANT DIMEGLUMINE 150 MG in SODIUM CHLORIDE 145 ML IVPB ONE (08:30)
[2018-09-09] MEDS ORDERED: FAMOTIDINE 20 MG/50 ML IVPB 20 MG/50 ML MG IVPB ONE (08:30)
[2018-09-09] MEDS ORDERED: DEXAMETHASONE SODIUM PHOSPHATE 10 MG, DIPHENHYDRAMINE 50 MG in SODIUM CHLORIDE 100 ML IVPB ONE (08:30)
[2018-09-09] MEDS ORDERED: PALONOSETRON HCL 0.25 MG/5 ML VIAL IVPUSH ONE (08:30)
[2018-09-09] MEDS ORDERED: PACLITAXEL 300 MG in SODIUM CHLORIDE 500 ML IVPB ONE (09:00)
[2018-09-09] MEDS ORDERED: SODIUM CHLORIDE IVPB ONE (12:00)
[2018-09-09] MEDS ORDERED: CARBOPLATIN IVPB ONE (12:00)
[2018-09-09] MEDS ORDERED: DEXAMETHASONE SOD PHOSPHATE 10 MG/1 ML VIAL IVPB ONE (12:09)
[2018-09-09] MEDS ORDERED: DEXAMETHASONE SOD PHOSPHATE 10 MG/1 ML VIAL IVPUSH ONE (12:09)
[2018-09-09 16:30] VITALS: TEMP 97.8
[2018-09-09] MEDS ORDERED: PORTA CATH FLUSH 10 ML IVPUSH ONE (16:30)
[2018-09-09] MEDS ORDERED: SODIUM CHLORIDE 500 ML IV ONE (18:00)
[2018-09-09 19:37] VITALS: BP 147/86; PULSE 98
== END 2018-09-09 19:40 | disposition home or self-care (01) ==
LOC: JRADIR 05:41 → J7W 11:23 → JRADIR 19:40
PROVIDERS: ATTEND Internal Medicine Hematology & Oncology
PROC: 02HV33Z Insertion of Infusion Device into Superior Vena Cava, Percutaneous Approach (ICD-10-PCS; principal; 2018-09-09)
PROC: B518ZZA Fluoroscopy of Superior Vena Cava, Guidance (ICD-10-PCS; 2018-09-09)
PROC: 3E04305 Introduction of Other Antineoplastic into Central Vein, Percutaneous Approach (ICD-10-PCS; 2018-09-09)
DX: Z51.11 Encounter for antineoplastic chemotherapy (principal); C57.00 Malignant neoplasm of unspecified fallopian tube
CPT/HCPCS: 36561; 96361; 96367; 96375; 96413; 96415; 96417; C1788; 36415; 77001-TC-FY; 80053; 83735; 84134; 85025; J1100; J1453; J2469

== ENCOUNTER 2018-09-10 07:15 | Day surgery (SDC) | payer OTHER ==
[2018-09-10] MEDS ORDERED: PEGFILGRASTIM 6 MG/0.6 ML DISP.SYRIN SQ ONE (09:00)
[2018-09-10] MEDS: SODIUM CHLORIDE 250 ML IV ONE ×2 (14:49→16:10)
[2018-09-10 15:29] VITALS: TEMP 98.1
[2018-09-10] MEDS ORDERED: PORTA CATH FLUSH 10 ML IVPUSH ONE (15:29)
[2018-09-10] MEDS ORDERED: SODIUM CHLORIDE 500 ML IV ONE (15:44)
[2018-09-10 17:07] VITALS: BP 154/73; PULSE 70
== END 2018-09-10 16:50 | disposition home or self-care (01) ==
LOC: JONCCHEMO 07:15 → J7W 14:28 → JONCCHEMO 16:50
PROVIDERS: ATTEND Internal Medicine Hematology & Oncology
PROC: 3E013GC Introduction of Other Therapeutic Substance into Subcutaneous Tissue, Percutaneous Approach (ICD-10-PCS; principal; 2018-09-10)
PROC: 3E043GC Introduction of Other Therapeutic Substance into Central Vein, Percutaneous Approach (ICD-10-PCS; 2018-09-10)
DX: C57.00 Malignant neoplasm of unspecified fallopian tube (principal); Z76.89 Persons encountering health services in other specified circumstances
CPT/HCPCS: 96361; 96365; 96366; 96372; J2505

== ENCOUNTER 2018-09-30 08:22 | Day surgery (SDC) | payer OTHER ==
[~2018-09-30 08:22] MED LIST: SODIUM CHLORIDE 250 ML IV ONE
[2018-09-30] MEDS ORDERED: PALONOSETRON HCL 0.25 MG/5 ML VIAL IVPUSH ONE (08:30)
[2018-09-30] MEDS ORDERED: FAMOTIDINE 20 MG/50 ML IVPB 20 MG/50 ML MG IVPB ONE (08:30)
[2018-09-30] MEDS ORDERED: DEXAMETHASONE SODIUM PHOSPHATE 20 MG, DIPHENHYDRAMINE 50 MG in SODIUM CHLORIDE 100 ML IVPB ONE (08:30)
[2018-09-30] MEDS ORDERED: FOSAPREPITANT DIMEGLUMINE 150 MG in SODIUM CHLORIDE 145 ML IVPB ONE (08:30)
[2018-09-30] MEDS ORDERED: PACLITAXEL IVPB ONE (09:00)
[2018-09-30] MEDS ORDERED: SODIUM CHLORIDE IVPB ONE ×2 (09:00→12:00)
[2018-09-30 09:54] LABS: BASO % 0.7 % (0-2.0); EOS % 0.6 % (0-4.5); HEMATOCRIT 40.2 % (32.4-45.2); HEMOGLOBIN 14.1 GM/dL (10.7-15.3); LYMPH % 5.3 % (8-40); MCH 30.7 pg (25.7-33.7); MCHC 35.1 g/dl (32.0-36.0); MEAN CELL VOLUME 87.7 fl (80-96); MEAN PLT VOLUME 8.1 fl (7.5-11.1); NEUT % 92.4 % (42.8-82.8); PLATELET COUNT 358 K/MM3 (134-434); RBC 4.58 M/mm3 (3.60-5.2); RDW 13.3 % (11.6-15.6); WHITE BLOOD COUNT 8.7 K/mm3 (4.0-10.0)
[2018-09-30 10:32] LABS: ALBUMIN 3.7 g/dl (3.4-5.0); ALK PHOS 129 U/L (45-117); ANION GAP 9 MMOL/L (8-16); BILIRUBIN,DIRECT 0.1 mg/dL (0.0-0.2); BILIRUBIN,TOTAL 0.3 mg/dL (0.2-1); BLOOD UREA NITROGEN 13 mg/dL (7-18); CALCIUM 8.6 mg/dL (8.5-10.1); CHLORIDE 108 mmol/L (98-107); CO2 23 mmol/L (21-32); CREATININE 0.7 mg/dL (0.55-1.3); GLUCOSE,RANDOM 138 mg/dL (74-106); MAGNESIUM 2.3 mg/dL (1.8-2.4); SGOT/AST 17 U/L (15-37); SGPT/ALT 46 U/L (13-61); SODIUM 140 mmol/L (136-145); TOT PROT 6.4 g/dl (6.4-8.2); TOT PROT 6.5 g/dl (6.4-8.2)
[2018-09-30] MEDS ORDERED: CARBOPLATIN IVPB ONE (12:00)
[2018-09-30] MEDS ORDERED: SODIUM CHLORIDE 250 ML IV ONE (13:00)
[2018-09-30 18:07] VITALS: TEMP 98
[2018-09-30] MEDS ORDERED: PORTA CATH FLUSH 10 ML IVPUSH ONE ×2 (18:07→18:43)
[2018-09-30 18:43] VITALS: BP 154/94; PULSE 92
== END 2018-09-30 19:03 | disposition home or self-care (01) ==
LOC: JONCCHEMO 08:22 → J7W 11:10 → JONCCHEMO 19:03
PROVIDERS: ATTEND Internal Medicine Hematology & Oncology
DX: Z51.11 Encounter for antineoplastic chemotherapy (principal); C57.00 Malignant neoplasm of unspecified fallopian tube
CPT/HCPCS: 36415; 80053; 80076; 83735; 85025; 96361; 96367; 96375; 96413; 96415; 96417; J1453; J2469

== ENCOUNTER 2018-10-01 07:17 | Day surgery (SDC) | payer OTHER ==
[2018-10-01] MEDS ORDERED: PEGFILGRASTIM 6 MG/0.6 ML DISP.SYRIN SQ ONE (08:00)
[2018-10-01 15:35] VITALS: BP 117/64; PULSE 81; TEMP 98.5
== END 2018-10-01 16:00 | disposition home or self-care (01) ==
LOC: JONCCHEMO 07:17 → J7W 15:27 → JONCCHEMO 16:00
PROVIDERS: ATTEND Internal Medicine Hematology & Oncology
PROC: 3E013GC Introduction of Other Therapeutic Substance into Subcutaneous Tissue, Percutaneous Approach (ICD-10-PCS; principal; 2018-10-01)
DX: C57.00 Malignant neoplasm of unspecified fallopian tube (principal); Z76.89 Persons encountering health services in other specified circumstances
CPT/HCPCS: 96372; J2505

== ENCOUNTER 2018-10-21 07:08 | Day surgery (SDC) | payer OTHER ==
[2018-10-21] MEDS ORDERED: SODIUM CHLORIDE 250 ML IV ONE ×2 (09:00→14:00)
[2018-10-21 09:45] LABS: BASO % 1.2 % (0-2.0); EOS % 3.4 % (0-4.5); HEMATOCRIT 39.8 % (32.4-45.2); HEMOGLOBIN 13.5 GM/dL (10.7-15.3); LYMPH % 12.5 % (8-40); MCH 30.1 pg (25.7-33.7); MCHC 33.9 g/dl (32.0-36.0); MEAN CELL VOLUME 88.7 fl (80-96); MEAN PLT VOLUME 7.4 fl (7.5-11.1); NEUT % 76.9 % (42.8-82.8); PLATELET COUNT 231 K/MM3 (134-434); RBC 4.48 M/mm3 (3.60-5.2); RDW 15.8 % (11.6-15.6); WHITE BLOOD COUNT 5.3 K/mm3 (4.0-10.0)
[2018-10-21] MEDS ORDERED: FAMOTIDINE 20 MG/50 ML IVPB 20 MG/50 ML MG IVPB ONE (10:00)
[2018-10-21] MEDS ORDERED: FOSAPREPITANT DIMEGLUMINE 150 MG in SODIUM CHLORIDE 150 ML IVPB ONE (10:00)
[2018-10-21] MEDS ORDERED: PALONOSETRON HCL 0.25 MG/5 ML VIAL IVPUSH ONE (10:00)
[2018-10-21] MEDS ORDERED: DEXAMETHASONE SODIUM PHOSPHATE 20 MG, DIPHENHYDRAMINE 50 MG in SODIUM CHLORIDE 100 ML IVPB ONE (10:00)
[2018-10-21 10:13] LABS: ALBUMIN 3.8 g/dl (3.4-5.0); ALK PHOS 141 U/L (45-117); ANION GAP 8 MMOL/L (8-16); BILIRUBIN,TOTAL 0.3 mg/dL (0.2-1); BLOOD UREA NITROGEN 13 mg/dL (7-18); CALCIUM 8.8 mg/dL (8.5-10.1); CHLORIDE 106 mmol/L (98-107); CO2 26 mmol/L (21-32); CREATININE 0.6 mg/dL (0.55-1.3); GLUCOSE,RANDOM 100 mg/dL (74-106); POTASSIUM 4.3 mmol/L (3.5-5.1); SGOT/AST 23 U/L (15-37); SGPT/ALT 49 U/L (13-61); SODIUM 140 mmol/L (136-145); TOT PROT 6.6 g/dl (6.4-8.2)
[2018-10-21 10:22] LABS: ALBUMIN 3.8 g/dl (3.4-5.0); BILIRUBIN,DIRECT 0.1 mg/dL (0.0-0.2); BILIRUBIN,TOTAL 0.4 mg/dL (0.2-1); MAGNESIUM 2.2 mg/dL (1.8-2.4); TOT PROT 6.6 g/dl (6.4-8.2)
[2018-10-21] MEDS ORDERED: SODIUM CHLORIDE IVPB ONE ×2 (10:30→13:30)
[2018-10-21] MEDS ORDERED: PACLITAXEL IVPB ONE (10:30)
[2018-10-21] MEDS ORDERED: CARBOPLATIN IVPB ONE (13:30)
[2018-10-21 15:54] VITALS: TEMP 98.3
[2018-10-21] MEDS ORDERED: PORTA CATH FLUSH 10 ML IVPUSH ONE (16:00)
[2018-10-21 18:53] VITALS: BP 133/76; PULSE 79
== END 2018-10-21 18:32 | disposition home or self-care (01) ==
LOC: JONCCHEMO 07:08 → J7W 10:52 → JONCCHEMO 18:32
PROVIDERS: ATTEND Internal Medicine Hematology & Oncology
DX: Z51.11 Encounter for antineoplastic chemotherapy (principal); C57.00 Malignant neoplasm of unspecified fallopian tube
CPT/HCPCS: 36415; 80053; 80076; 83735; 85025; 96361; 96367; 96375; 96413; 96415; 96417; J1453; J2469

== ENCOUNTER 2018-10-22 07:21 | Day surgery (SDC) | payer OTHER ==
[2018-10-22] MEDS ORDERED: PEGFILGRASTIM 6 MG/0.6 ML DISP.SYRIN SQ ONE (10:00)
[2018-10-22 16:32] VITALS: BP 130/81; PULSE 103; TEMP 97.7
== END 2018-10-22 15:10 | disposition home or self-care (01) ==
LOC: JONCCHEMO 07:21 → J7W 14:56 → JONCCHEMO 15:10
PROVIDERS: ATTEND Internal Medicine Hematology & Oncology
PROC: 3E013GC Introduction of Other Therapeutic Substance into Subcutaneous Tissue, Percutaneous Approach (ICD-10-PCS; principal; 2018-10-22)
DX: C57.00 Malignant neoplasm of unspecified fallopian tube (principal); Z76.89 Persons encountering health services in other specified circumstances
CPT/HCPCS: 96372; J2505

== ENCOUNTER 2018-11-11 07:13 | Day surgery (SDC) | payer OTHER ==
[2018-11-11] MEDS ORDERED: SODIUM CHLORIDE 250 ML IV ONE ×2 (08:00→13:00)
[2018-11-11] MEDS ORDERED: FAMOTIDINE 20 MG/50 ML IVPB 20 MG/50 ML MG IVPB ONE (08:30)
[2018-11-11] MEDS ORDERED: PALONOSETRON HCL 0.25 MG/5 ML VIAL IVPUSH ONE (08:30)
[2018-11-11] MEDS ORDERED: DEXAMETHASONE SODIUM PHOSPHATE 20 MG, DIPHENHYDRAMINE 50 MG in SODIUM CHLORIDE 100 ML IVPB ONE (08:30)
[2018-11-11] MEDS ORDERED: FOSAPREPITANT DIMEGLUMINE 150 MG in SODIUM CHLORIDE 145 ML IVPB ONE (08:30)
[2018-11-11] MEDS ORDERED: SODIUM CHLORIDE IVPB ONE ×2 (09:00→12:00)
[2018-11-11] MEDS ORDERED: PACLITAXEL IVPB ONE (09:00)
[2018-11-11 10:38] LABS: BASO % 0.4 % (0-2.0); HEMATOCRIT 38.6 % (32.4-45.2); HEMOGLOBIN 13.3 GM/dL (10.7-15.3); LYMPH % 7.3 % (8-40); MCH 30.7 pg (25.7-33.7); MCHC 34.5 g/dl (32.0-36.0); MEAN CELL VOLUME 88.9 fl (80-96); MEAN PLT VOLUME 7.5 fl (7.5-11.1); MONO % 1.9 % (3.8-10.2); NEUT % 89.4 % (42.8-82.8); PLATELET COUNT 304 K/MM3 (134-434); RBC 4.35 M/mm3 (3.60-5.2); RDW 17.3 % (11.6-15.6); WHITE BLOOD COUNT 7.3 K/mm3 (4.0-10.0)
[2018-11-11 10:59] LABS: ANION GAP 6 MMOL/L (8-16); BLOOD UREA NITROGEN 16 mg/dL (7-18); CALCIUM 9.3 mg/dL (8.5-10.1); CHLORIDE 105 mmol/L (98-107); CO2 27 mmol/L (21-32); CREATININE 0.5 mg/dL (0.55-1.3); GLUCOSE,RANDOM 100 mg/dL (74-106); MAGNESIUM 2.1 mg/dL (1.8-2.4); POTASSIUM 4.2 mmol/L (3.5-5.1); SODIUM 139 mmol/L (136-145)
[2018-11-11] MEDS ORDERED: CARBOPLATIN IVPB ONE (12:00)
[2018-11-11 12:39] LABS: ALBUMIN 3.9 g/dl (3.4-5.0); ALK PHOS 143 U/L (45-117); BILIRUBIN,DIRECT 0.1 mg/dL (0.0-0.2); BILIRUBIN,TOTAL 0.3 mg/dL (0.2-1); SGOT/AST 15 U/L (15-37); SGPT/ALT 36 U/L (13-61); TOT PROT 6.8 g/dl (6.4-8.2)
[2018-11-11] MEDS ORDERED: PORTA CATH FLUSH 10 ML IVPUSH ONE (16:08)
[2018-11-11 20:09] VITALS: BP 145/86; PULSE 91; TEMP 97.9
== END 2018-11-11 20:20 | disposition home or self-care (01) ==
LOC: JONCCHEMO 07:13 → J7W 12:34 → JONCCHEMO 20:20
PROVIDERS: ATTEND Internal Medicine Hematology & Oncology
DX: Z51.11 Encounter for antineoplastic chemotherapy (principal); C57.00 Malignant neoplasm of unspecified fallopian tube
CPT/HCPCS: 36415; 80048; 80076; 83735; 85025; 96361; 96367; 96375; 96413; 96415; 96417; J1453; J2469

== ENCOUNTER 2018-11-12 07:35 | Day surgery (SDC) | payer OTHER ==
[2018-11-12] MEDS ORDERED: PEGFILGRASTIM 6 MG/0.6 ML DISP.SYRIN SQ ONE (09:00)
[2018-11-12 18:04] VITALS: BP 133/76; PULSE 80; TEMP 97.9
== END 2018-11-12 18:15 | disposition home or self-care (01) ==
LOC: JONCCHEMO 07:35 → J7W 17:51 → JONCCHEMO 18:15
PROVIDERS: ATTEND Internal Medicine Hematology & Oncology
PROC: 3E013GC Introduction of Other Therapeutic Substance into Subcutaneous Tissue, Percutaneous Approach (ICD-10-PCS; principal; 2018-11-12)
DX: C57.00 Malignant neoplasm of unspecified fallopian tube (principal); Z76.89 Persons encountering health services in other specified circumstances
CPT/HCPCS: 96372; J2505

== ENCOUNTER 2018-12-02 07:20 | Day surgery (SDC) | payer OTHER ==
[2018-12-02] MEDS ORDERED: SODIUM CHLORIDE 250 ML IV ONE ×2 (09:00→14:30)
[2018-12-02] MEDS ORDERED: DEXAMETHASONE SODIUM PHOSPHATE 20 MG, DIPHENHYDRAMINE 50 MG in SODIUM CHLORIDE 100 ML IVPB ONE (10:00)
[2018-12-02] MEDS ORDERED: FAMOTIDINE 20 MG/50 ML IVPB 20 MG/50 ML MG IVPB ONE (10:00)
[2018-12-02] MEDS ORDERED: PALONOSETRON HCL 0.25 MG/5 ML VIAL IVPUSH ONE (10:00)
[2018-12-02] MEDS ORDERED: FOSAPREPITANT DIMEGLUMINE 150 MG in SODIUM CHLORIDE 150 ML IVPB ONE (10:00)
[2018-12-02] MEDS ORDERED: SODIUM CHLORIDE IVPB ONE ×2 (10:30→13:30)
[2018-12-02] MEDS ORDERED: PACLITAXEL IVPB ONE (10:30)
[2018-12-02 11:22] LABS: BASO % 0.6 % (0-2.0); HEMATOCRIT 39.3 % (32.4-45.2); MCH 30.6 pg (25.7-33.7); MCHC 33.1 g/dl (32.0-36.0); MEAN CELL VOLUME 92.3 fl (80-96); MEAN PLT VOLUME 7.9 fl (7.5-11.1); MONO % 4.2 % (3.8-10.2); NEUT % 83.2 % (42.8-82.8); PLATELET COUNT 181 K/MM3 (134-434); RBC 4.25 M/mm3 (3.60-5.2); RDW 18.2 % (11.6-15.6); WHITE BLOOD COUNT 5.6 K/mm3 (4.0-10.0)
[2018-12-02 12:10] LABS: ALBUMIN 3.9 g/dl (3.4-5.0); BILIRUBIN,TOTAL 0.4 mg/dL (0.2-1); CALCIUM 9.1 mg/dL (8.5-10.1); CREATININE 0.5 mg/dL (0.55-1.3); MAGNESIUM 2.1 mg/dL (1.8-2.4); POTASSIUM 4.2 mmol/L (3.5-5.1); TOT PROT 6.4 g/dl (6.4-8.2)
[2018-12-02] MEDS ORDERED: CARBOPLATIN IVPB ONE (13:30)
[2018-12-02] MEDS ORDERED: PORTA CATH FLUSH 10 ML IVPUSH ONE (16:05)
[2018-12-02 16:06] VITALS: TEMP 98.7
[2018-12-02 18:51] VITALS: BP 128/77; PULSE 80
== END 2018-12-02 18:51 | disposition home or self-care (01) ==
LOC: JONCCHEMO 07:20 → J7W 11:45 → JONCCHEMO 18:51
PROVIDERS: ATTEND Internal Medicine Hematology & Oncology
PROC: 3E04305 Introduction of Other Antineoplastic into Central Vein, Percutaneous Approach (ICD-10-PCS; principal; 2018-12-02)
PROC: 3E033GC Introduction of Other Therapeutic Substance into Peripheral Vein, Percutaneous Approach (ICD-10-PCS; 2018-12-02)
PROC: 3E0437Z Introduction of Electrolytic and Water Balance Substance into Central Vein, Percutaneous Approach (ICD-10-PCS; 2018-12-02)
DX: Z51.11 Encounter for antineoplastic chemotherapy (principal); C57.01 Malignant neoplasm of right fallopian tube
CPT/HCPCS: 36415; 80053; 83735; 85025; 96361; 96367; 96375; 96413; 96415; 96417; J1453; J2469

== ENCOUNTER 2018-12-03 07:10 | Day surgery (SDC) | payer OTHER ==
[2018-12-03] MEDS ORDERED: SODIUM CHLORIDE 500 ML IV ONE (13:45)
[2018-12-03] MEDS ORDERED: PEGFILGRASTIM 6 MG/0.6 ML DISP.SYRIN SQ ONE (14:41)
[2018-12-03] MEDS ORDERED: PORTA CATH FLUSH 10 ML IVPUSH ONE (16:00)
[2018-12-03 16:01] VITALS: BP 147/85; PULSE 93; TEMP 98.2
== END 2018-12-03 15:34 | disposition home or self-care (01) ==
LOC: JONCCHEMO 07:10 → J7W 12:44 → JONCCHEMO 15:34
PROVIDERS: ATTEND Internal Medicine Hematology & Oncology
PROC: 3E013GC Introduction of Other Therapeutic Substance into Subcutaneous Tissue, Percutaneous Approach (ICD-10-PCS; principal; 2018-12-03)
PROC: 3E0437Z Introduction of Electrolytic and Water Balance Substance into Central Vein, Percutaneous Approach (ICD-10-PCS; 2018-12-03)
DX: C57.01 Malignant neoplasm of right fallopian tube (principal); Z76.89 Persons encountering health services in other specified circumstances
CPT/HCPCS: 96361; J2505

== ENCOUNTER 2018-12-23 07:18 | Day surgery (SDC) | payer OTHER ==
[2018-12-23] MEDS ORDERED: SODIUM CHLORIDE 250 ML IV ONE ×2 (09:00→14:30)
[2018-12-23 09:04] LABS: BASO % 0.5 % (0-2.0); EOS % 3.1 % (0-4.5); HEMATOCRIT 39.1 % (32.4-45.2); LYMPH % 13.5 % (8-40); MCH 31.6 pg (25.7-33.7); MCHC 33.2 g/dl (32.0-36.0); MEAN CELL VOLUME 95.4 fl (80-96); MEAN PLT VOLUME 7.4 fl (7.5-11.1); MONO % 4.6 % (3.8-10.2); NEUT % 78.3 % (42.8-82.8); PLATELET COUNT 281 K/MM3 (134-434); RDW 16.4 % (11.6-15.6); WHITE BLOOD COUNT 4.2 K/mm3 (4.0-10.0)
[2018-12-23 09:46] LABS: ALBUMIN 3.8 g/dl (3.4-5.0); BILIRUBIN,TOTAL 0.3 mg/dL (0.2-1); CREATININE 0.6 mg/dL (0.55-1.3); MAGNESIUM 2.2 mg/dL (1.8-2.4); POTASSIUM 4.6 mmol/L (3.5-5.1); TOT PROT 6.3 g/dl (6.4-8.2)
[2018-12-23] MEDS ORDERED: FOSAPREPITANT DIMEGLUMINE 150 MG in SODIUM CHLORIDE 150 ML IVPB ONE (10:00)
[2018-12-23] MEDS ORDERED: FAMOTIDINE 20 MG/50 ML IVPB 20 MG/50 ML MG IVPB ONE (10:00)
[2018-12-23] MEDS ORDERED: PALONOSETRON HCL 0.25 MG/5 ML VIAL IVPUSH ONE (10:00)
[2018-12-23] MEDS ORDERED: DEXAMETHASONE SODIUM PHOSPHATE 20 MG, DIPHENHYDRAMINE 50 MG in SODIUM CHLORIDE 100 ML IVPB ONE (10:00)
[2018-12-23] MEDS ORDERED: SODIUM CHLORIDE IVPB ONE ×2 (10:30→13:30)
[2018-12-23] MEDS ORDERED: PACLITAXEL IVPB ONE (10:30)
[2018-12-23] MEDS ORDERED: CARBOPLATIN IVPB ONE (13:30)
[2018-12-23 18:46] VITALS: BP 150/72; PULSE 94; TEMP 98.4
[2018-12-23] MEDS ORDERED: PORTA CATH FLUSH 10 ML IVPUSH ONE (18:46)
== END 2018-12-23 18:35 | disposition home or self-care (01) ==
LOC: JONCCHEMO 07:18 → J7W 09:58 → JONCCHEMO 18:35
PROVIDERS: ATTEND Internal Medicine Hematology & Oncology
DX: Z51.11 Encounter for antineoplastic chemotherapy (principal); C57.01 Malignant neoplasm of right fallopian tube
CPT/HCPCS: 36415; 80053; 83735; 85025; 96361; 96367; 96375; 96413; 96415; 96417; J1453; J2469

== ENCOUNTER 2018-12-24 07:19 | Day surgery (SDC) | payer OTHER | END 2018-12-24 16:15 | disposition home or self-care (01) | LOC: JONCCHEMO 07:19 → J7W 13:18 → JONCCHEMO 16:15 ==

== ENCOUNTER → 2019-03-03 | Day surgery (SDC) | payer OTHER ==
[2019-03-03 10:18] LABS: BASO % 0.6 % (0-2.0); EOS % 3.7 % (0-4.5); HEMATOCRIT 41.3 % (32.4-45.2); HEMOGLOBIN 14.1 GM/dL (10.7-15.3); LYMPH % 19.9 % (8-40); MCH 31.9 pg (25.7-33.7); MCHC 34.2 g/dl (32.0-36.0); MEAN CELL VOLUME 93.3 fl (80-96); MEAN PLT VOLUME 7.8 fl (7.5-11.1); MONO % 6.9 % (3.8-10.2); NEUT % 68.9 % (42.8-82.8); PLATELET COUNT 217 K/MM3 (134-434); RBC 4.43 M/mm3 (3.60-5.2); RDW 12.5 % (11.6-15.6); WHITE BLOOD COUNT 5.2 K/mm3 (4.0-10.0)
[2019-03-03 11:17] LABS: INR 0.94 (0.83-1.09); PROTHROMBIN TIME (PATIENT) 11.1 SEC (9.7-13.0)
== END | disposition home or self-care (01) ==
LOC: JRADIR 08:56
PROVIDERS: ATTEND Internal Medicine Hematology & Oncology
PROC: 0JPT0XZ Removal of Tunneled Vascular Access Device from Trunk Subcutaneous Tissue and Fascia, Open Approach (ICD-10-PCS; principal; 2019-03-03)
DX: Z45.2 Encounter for adjustment and management of vascular access device (principal)
CPT/HCPCS: 36415; 36590; 77001-TC-FY; 85025; 85610

== ENCOUNTER 2020-11-12 09:59 | Emergency (ER) | payer OTHER ==
[2020-11-12 10:06] VITALS: BP 161/93; PULSE 99; TEMP 98.2; BMI 25.7
[2020-11-12 10:58] LABS: BASO % 0.8 % (0-2.0); EOS % 3.3 % (0-4.5); HEMATOCRIT 42.5 % (32.4-45.2); HEMOGLOBIN 14.6 GM/dL (10.7-15.3); MCH 30.4 pg (25.7-33.7); MCHC 34.3 g/dl (32.0-36.0); MEAN CELL VOLUME 88.5 fl (80-96); MEAN PLT VOLUME 7.9 fl (7.5-11.1); MONO % 5.3 % (3.8-10.2); NEUT % 72.6 % (42.8-82.8); PLATELET COUNT 255 K/MM3 (134-434); RBC 4.81 M/mm3 (3.60-5.2); RDW 12.8 % (11.6-15.6); WHITE BLOOD COUNT 6.9 K/mm3 (4.0-10.0)
[2020-11-12 11:20] LABS: CHLORIDE 107 mmol/L (98-107); SODIUM 139 mmol/L (136-145)
[2020-11-12 11:22] LABS: CALCIUM 9.2 mg/dL (8.5-10.1)
[2020-11-12 11:23] LABS: ALBUMIN 4.2 g/dl (3.4-5.0); ANION GAP 5 MMOL/L (8-16); CO2 27 mmol/L (21-32); GLUCOSE,RANDOM 95 mg/dL (74-106)
[2020-11-12 11:26] LABS: CREATININE 0.6 mg/dL (0.55-1.3); SGOT/AST 26 U/L (15-37); SGPT/ALT 57 U/L (13-61)
[2020-11-12 11:28] LABS: BILIRUBIN,TOTAL 0.3 mg/dL (0.2-1)
[2020-11-12 11:29] LABS: ALK PHOS 164 U/L (45-117)
[2020-11-12 12:10] LABS: EPI CELLS 3 /uL (0-25.1); HYALINE CASTS 0 /uL (0-3.1); URINE APPEARANCE CLEAR; URINE BACTERIA 90 /uL (0-1359); URINE BILIRUBIN NEGATIVE (NEGATIVE); URINE COLOR YELLOW; URINE GLUCOSE (UA) NEGATIVE (NEGATIVE); URINE KETONE NEGATIVE (NEGATIVE); URINE LEUK ESTERASE TRACE (NEGATIVE); URINE NITRITE NEGATIVE (NEGATIVE); URINE PROTEIN NEGATIVE (NEGATIVE); URINE RBC 3 /uL (0-23.9); URINE UROBILINOGEN 0.2 mg/dL (0.2-1.0); URINE WBC 2 /uL (0-25.8)
== END 2020-11-12 12:53 | disposition home or self-care (01) ==
LOC: JER 09:59
DX: I10 Essential (primary) hypertension (principal)
CPT/HCPCS: 36415; 71046-TC-FY; 80053; 81003; 84484; 85025; 87086; 93005; 93010; 99284-25

== ENCOUNTER → 2023-08-05 | Day surgery (SDC) | payer OTHER | END | disposition home or self-care (01) | LOC: JMAMMO-SUR 11:06 → JRADUS-SUR 11:06 | PROVIDERS: ATTEND Obstetrics & Gynecology | PROC: 0H9T3ZX Drainage of Right Breast, Percutaneous Approach, Diagnostic (ICD-10-PCS; principal; 2023-08-05) | DX: D24.1 Benign neoplasm of right breast (principal) | CPT/HCPCS: 19083; 77065-TC; 87899; 88305-TC; A4648 ==

== ENCOUNTER 2023-11-02 11:09 | Emergency (ER) | payer OTHER ==
[2023-11-02 11:32] VITALS: BP 145/81; PULSE 84; RESP 18; TEMP 98.3; BMI 20.9
[2023-11-02] MEDS ORDERED: MECLIZINE HCL 25 MG TABLET (FP) ONE (13:01)
[2023-11-02] MEDS ORDERED: ONDANSETRON 4 MG/2 ML VIAL ONE (13:01)
[2023-11-02 13:10] LABS: HEMATOCRIT 47.4 % (32.4-45.2); HEMOGLOBIN 15.8 GM/dL (10.7-15.3); MCH 29.7 pg (25.7-33.7); MCHC 33.4 g/dl (32.0-36.0); MEAN CELL VOLUME 88.9 fl (80-96); MEAN PLT VOLUME 7.9 fl (7.5-11.1); PLATELET COUNT 246 10^3/uL (134-434); RBC 5.33 M/mm3 (3.60-5.2); RDW 13.1 % (11.6-15.6); WHITE BLOOD COUNT 9.8 K/mm3 (4.0-10.0)
[2023-11-02] MEDS: LACTATED RINGERS SOLUTION 1000 ML INFUS.BAG IV ONE (13:10)
[2023-11-02] MEDS: MECLIZINE HCL 25 MG TABLET (FP) PO ONE (13:10)
[2023-11-02] MEDS: ONDANSETRON 4 MG/2 ML VIAL IVPUSH ONE (13:10)
[2023-11-02 13:17] LABS: INR 0.98 (0.83-1.09); PROTHROMBIN TIME (PATIENT) 11.4 SEC (9.7-13.0)
[2023-11-02 13:19] LABS: ACTIVATED PTT 25.6 SECONDS (25.2-36.5)
[2023-11-02 13:50] LABS: POTASSIUM 3.9 mmol/L (3.5-5.1)
[2023-11-02 13:54] LABS: BLOOD UREA NITROGEN 17.4 mg/dL (7-18); CALCIUM 9.4 mg/dL (8.5-10.1)
[2023-11-02 13:55] LABS: ALBUMIN 3.9 g/dl (3.4-5.0); MAGNESIUM 2.2 mg/dL (1.8-2.4)
[2023-11-02 13:57] LABS: PHOSPHOROUS 3.3 mg/dL (2.5-4.9)
[2023-11-02 13:58] LABS: CREATININE 0.6 mg/dL (0.55-1.3)
[2023-11-02 13:58] LABS: EPI CELLS 12 /uL (0-25.1); HYALINE CASTS 0 /uL (0-3.1); URINE APPEARANCE CLEAR; URINE BACTERIA 13 /uL (0-1359); URINE BILIRUBIN NEGATIVE (NEGATIVE); URINE COLOR YELLOW; URINE GLUCOSE (UA) NEGATIVE (NEGATIVE); URINE KETONE NEGATIVE (NEGATIVE); URINE LEUK ESTERASE TRACE (NEGATIVE); URINE NITRITE NEGATIVE (NEGATIVE); URINE PROTEIN NEGATIVE (NEGATIVE); URINE RBC 5 /uL (0-23.9); URINE UROBILINOGEN 0.2 mg/dL (0.2-1.0); URINE WBC 10 /uL (0-25.8)
[2023-11-02 13:59] LABS: BILIRUBIN,TOTAL 0.4 mg/dL (0.2-1); TOT PROT 6.7 g/dl (6.4-8.2)
== END 2023-11-02 15:00 | disposition home or self-care (01) ==
LOC: JER 11:09
PROC: 3E030GC Introduction of Other Therapeutic Substance into Peripheral Vein, Open Approach (ICD-10-PCS; principal; 2023-11-02)
DX: R42 Dizziness and giddiness (principal); R11.2 Nausea with vomiting, unspecified; Z20.822 Contact with and (suspected) exposure to COVID-19
CPT/HCPCS: 0241U-QW; 36415; 71045-TC-FY; 80053; 81003; 83690; 83735; 84100; 84484; 85025; 85610; 85730; 87086; 93005; 93010; 99285-25